=== PATIENT | male | born 1955 | race Caucasian/White ===

== ENCOUNTER 2017-08-07 19:31 | Emergency (ER) | payer MEDICAID, OTHER ==
[~2017-08-07] VITALS: Ht 167.6 cm; Wt 97.0 kg
[~2017-08-07 19:31] MED LIST: ASPI81TA3 PO; AZIT250T94 PO; CLOP75TA27 PO; METO50TA16 PO; NITR0.4T6 SL; SIMV40TA2 PO
[2017-08-07 19:34] VITALS: Ht 167.6 cm; Wt 97.0 kg
[2017-08-07] MEDS ORDERED: KETOROLAC 30 MG INJ IV STA (20:01)
[2017-08-07] MEDS ORDERED: SOD CHLORIDE 0.9% 1,000 ML IV STA (20:01)
[2017-08-07] MEDS ORDERED: ONDANSETRON 4 MG INJ IV STA (20:01)
[2017-08-07 20:24] LABS: BASOPHILS % 0.5 % (0.0-2.0); EOSINOPHILS # 0.3 10^3/ul (0.0-0.5); EOSINOPHILS % 3.3 % (0.0-7.0); HEMATOCRIT 46.5 % (42.0-52.0); HEMOGLOBIN 14.8 g/dl (14.0-18.0); LYMPHOCYTES # 2.9 10^3/ul (0.8-2.9); LYMPHOCYTES % 32.7 % (15.0-51.0); MEAN CORPUSCULAR HGB CONC 31.8 g/dl (32.0-37.0); MEAN CORPUSCULAR VOLUME 81.6 fl (82.0-101.0); MEAN PLATELET VOLUME 10.3 fl (7.4-10.4); MONOCYTE # 0.8 10^3/ul (0.3-0.9); NEUTROPHIL # 4.8 10^3/ul (1.6-7.5); NEUTROPHILS % 53.9 % (39.0-77.0); PLATELET COUNT 139 10^3/UL (140-415); POSITIVE DIFF @See below; RED CELL DISTRIBUTION WIDTH 13.6 % (11.5-14.5); WHITE BLOOD COUNT 8.8 10^3/ul (4.8-10.8)
[2017-08-07 20:57] LABS: ALBUMIN 4.4 g/dl (3.3-4.9); ALBUMIN/GLOBULIN RATIO 1.41; BILIRUBIN,INDIRECT 0.1 mg/dl (0-1.1); BILIRUBIN,TOTAL 0.1 mg/dl (0.2-1.3); CALCIUM 9.6 mg/dl (8.4-10.2); CREATININE 1.06 mg/dl (0.61-1.24); POTASSIUM 4.7 mmol/L (3.5-5.1); TOTAL PROTEIN 7.5 g/dl (6.1-8.1)
--- NOTE | 2017-08-07 21:22 | RADRPT ---
PROCEDURE: CT Abdomen and Pelvis without contrast. CLINICAL INDICATION: Right lower quadrant pain, right flank pain, back pain, mid abdominal pain, his tory of kidney stone TECHNIQUE: CT scan of the abdomen and pelvis without contrast was performed on a multidetector hig h-resolution CT scanner. The patient was scanned without intravenous contrast. Coronal and sagittal reformatted images were obtained from the axial source images. Images were reviewed on a high-resol [employer] PACS workstation. The total exam CTDI equals 19.83 mGy and the total exam DLP equals 1172.25 m Gy-cm. One or more the following dose reduction techniques were utilized: Automated exposure control, adjus tment of the mA and / or kV according to patient's size, or use of iterative reconstruction techniqu e. COMPARISON: 08/25/2007 FINDINGS: Minimal linear atelectasis/fibrosis at lung bases. No pneumoperitoneum is seen. Coronary artery calc ification. The gallbladder is contracted. This is nonspecific and could be due to nonfasting state. Food material/debris and air in the stomach. No abnormality seen in the liver, pancreas. No biliary dilatation is seen. No abnormality is seen in the spleen. There is minimal right hydronephrosis. The re are 3 rounded fluid density structures arising in the left kidney the largest 5.1 cm likely cysts . There is an approximate 4 mm calculus in the right ureter just below the level of the iliac crest. There is minimal periureteral soft tissue stranding. Phleboliths in the pelvis. No ascites is seen. Calcification in thoracoabdominal aorta, splenic, bilateral renal and bilateral iliac and femoral a rteries. There is mild prominence of the prostate with impression on the posterior inferior bladder. No definite abnormality of the colon is seen. There is an unremarkable appendix. No dilated small bowel loops are seen. No enlarged lymph nodes are seen in the abdomen or pelvis. There is a small to moderate left inguinal hernia containing fat only. Degenerative changes in thoracolumbar spine, sac roiliac joints and mild degenerative changes at hips. Small scattered likely bone islands. IMPRESSION: 4 mm calculus in upper to mid right ureter with minimal right hydronephrosis. Atherosclerosis. Small to moderate left inguinal hernia containing fat only. Please see above. RPTAT: HJES .Alfred Durand MD, MD Date Time Electronically viewed and signed by .Alfred Durand MD, MD on 08/07/2017 21:21 .S/
[2017-08-07 22:13] LABS: ADD UMIC YES; UR ASCORBIC ACID 40 mg/dL (NEGATIVE); UR BILIRUBIN (Dip) NEGATIVE (NEGATIVE); UR BLOOD (Dip) 2+ mg/dL (NEGATIVE); UR CLARITY CLEAR (CLEAR); UR COLOR YELLOW (YELLOW); UR GLUCOSE (Dip) NEGATIVE (NEGATIVE); UR KETONES (Dip) NEGATIVE (NEGATIVE); UR LEUKOCYTE ESTERASE (Dip) NEGATIVE Leu/ul (NEGATIVE); UR NITRITE (Dip) NEGATIVE (NEGATIVE); UR RBC 63 /HPF (0-5); UR SPECIFIC GRAVITY (Dip) 1.015 (1.003-1.030); UR TOTAL PROTEIN (Dip) NEGATIVE (NEGATIVE); UR UROBILINOGEN (Dip) NEGATIVE (NEGATIVE)
[2017-08-07] MEDS ORDERED: TAMS-14 PO (22:26)
[2017-08-07] MEDS ORDERED: IBUP-1542 PO (22:26)
[2017-08-07] MEDS ORDERED: HYDR-906 PO (22:26)
[2017-08-07] MEDS ORDERED: ONDA4TAB14 PO (22:27)
--- NOTE | 2017-08-07 22:34 | ERD ---
ER Documentation Chief Complaint Date/Time DATE: 08/07/17 TIME: 22:33 Chief Complaint R flank pain for 3 days hx kidney stones HPI Patient is a 62-year-old male with a past medical history of hypertension and nephrolithiasis who presents to the emergency department for intermittent right flank pain 3 days. Patient states the pain comes and goes in waves. Patient reports difficulty with sitting still secondary to pain. Patient reports taking ibuprofen with no alleviation of symptoms. Patient denies any dysuria, frequency, urgency or hematuria. Patient denies any recent falls or trauma. Patient denies any fevers, chills. Patient admits to nausea however he denies any vomiting. Patient denies any chest pain, shortness breath, abdominal pain or diarrhea. Patient denies any headache, blurry vision or LOC. ROS All systems reviewed and are negative except as per history of present illness. Medications Home Meds Active Scripts Ondansetron (Ondansetron Odt) 4 Mg Tab.rapdis, 4 MG PO Q6H Y for NAUSEA AND/OR VOMITING, #10 TAB Prov:BRIANNA GILLIS PA-C 08/07/17 Tamsulosin Hcl* (Flomax*) 0.4 Mg Cap.er.24h, 0.4 MG PO QPM, #30 CAP Prov:BRIANNA GILLIS PA-C 08/07/17 Hydrocodone/Acetaminophen (Alvin 5-325 Tablet) 1 Each Tablet, 1 TAB PO Q6H Y for PAIN, #7 TAB Prov:BRIANNA GILLIS PA-C 08/07/17 Ibuprofen* (Motrin*) 600 Mg Tab, 600 MG PO Q6, #30 TAB Prov:BRIANNA GILLIS PA-C 08/07/17 Azithromycin* (Zithromax*) 250 Mg Tab, 250 MG PO DAILY for 5 Days, TAB Prov:MAYO HALE 11/07/15 Nitroglycerin* (Nitroglycerin* SL) 0.4 Mg Tab.subl, 0.4 MG SL Q5MIN Y for CHEST PAIN, #1 BOTTLE Prov:MAYO HALE 11/07/15 Reported Medications Simvastatin* (Zocor*) 40 Mg Tablet, 40 MG PO QHS, #30 TAB 11/06/15 Aspirin* (Aspirin* Chew) 81 Mg Tab.chew, 81 MG PO DAILY, TAB.CHEW 11/06/15 Metoprolol Succinate* (Toprol XL*) 50 Mg Tab.er.24h, 50 MG PO DAILY, #30 TAB 11/06/15 Clopidogrel Bisulfate (Clopidogrel) 75 Mg Tablet, 75 MG PO DAILY, #30 TAB 11/06/15 Allergies Allergies: Coded Allergies: No Known Allergy (Unverified , 11/06/15) PMhx/Soc History of Surgery: Yes (STENT PLACEMENT 10 YEARS AGO) Anesthesia Reaction: No Hx Neurological Disorder: No Hx Respiratory Disorders: No Hx Cardiac Disorders: Yes (HTN, HYPERLIPIDEMIA, STENT PLACEMENT X 10 YEARS AGO) Hx Psychiatric Problems: No Hx Miscellaneous Medical Probl: No Hx Alcohol Use: Yes (OCCASIONAL, SOCIAL) Hx Substance Use: No Hx Tobacco Use: Yes (I PACK PER DAY X 14 YEARS) Smoking Status: Current every day smoker Physical Exam Vitals Vital Signs Date Time Temp Pulse Resp B/P Pulse Ox O2 Delivery O2 Flow Rate FiO2 08/07/17 19:34 97.7 83 20 168/83 98 Physical Exam GENERAL: Well-developed, well-nourished male. Appears in no acute distress. HEAD: Normocephalic, atraumatic. EYES: Pupils are equally reactive bilaterally. EOMs grossly intact. No conjunctival erythema. ENT: Moist mucous membranes. No uvula deviation. No kissing tonsils. NECK: Supple. No meningismus. Normal range of motion of the neck. LUNG: Clear to auscultation bilaterally. No rhonchi, wheezing, rales or coarse breath sounds. HEART: Regular rate and rhythm. No murmurs, rubs or gallops. ABDOMEN: Soft, nontender, and nondistended. Positive bowel sounds in all four quadrants. No rebound tenderness, no guarding. (-) McBurney's point tenderness. Right sided CVA tenderness. BACK: No midline tenderness. EXTREMITIES: Equal pulses bilaterally. No peripheral clubbing, cyanosis or edema. No unilateral leg swelling. NEUROLOGIC: Alert and oriented. Moving all four extremities without any difficulty. Normal speech. Steady gait. SKIN: Normal color. Warm and dry. No rashes or lesions. Result Diagram: 08/07/17201208/07/172012 Results 24 hrs Laboratory Tests Test 08/07/17 20:13 08/07/17 21:50 White Blood Count 8.810^3/ul Red Blood Count 5.7010^6/ul Hemoglobin 14.8g/dl Hematocrit 46.5% Mean Corpuscular Volume 81.6fl Mean Corpuscular Hemoglobin 26.0pg Mean Corpuscular Hemoglobin Concent 31.8g/dl Red Cell Distribution Width 13.6% Platelet Count 34387^3/UL Mean Platelet Volume 10.3fl Neutrophils % 53.9% Lymphocytes % 32.7% Monocytes % 9.0% Eosinophils % 3.3% Basophils % 0.5% Nucleated Red Blood Cells % 0.0/100WBC Neutrophils # 4.810^3/ul Lymphocytes # 2.910^3/ul Monocytes # 0.810^3/ul Eosinophils # 0.310^3/ul Basophils # 0.010^3/ul Nucleated Red Blood Cells # 0.010^3/ul Sodium Level 142mmol/L Potassium Level 4.7mmol/L Chloride Level 103mmol/L Carbon Dioxide Level 31mmol/L Anion Gap 13 Blood Urea Nitrogen 16mg/dl Creatinine 1.06mg/dl Glucose Level 121mg/dl Calcium Level 9.6mg/dl Total Bilirubin 0.1mg/dl Direct Bilirubin 0.00mg/dl Indirect Bilirubin 0.1mg/dl Aspartate Amino Transf (AST/SGOT) 42IU/L Alanine Aminotransferase (ALT/SGPT) 93IU/L Alkaline Phosphatase 85IU/L Total Protein 7.5g/dl Albumin 4.4g/dl Globulin 3.10g/dl Albumin/Globulin Ratio 1.41 Lipase 98U/L Urine Color YELLOW Urine Clarity CLEAR Urine pH 5.0 Urine Specific Benedict 1.015 Urine Ketones NEGATIVEmg/dL Urine Nitrite NEGATIVEmg/dL Urine Bilirubin NEGATIVEmg/dL Urine Urobilinogen NEGATIVEmg/dL Urine Leukocyte Esterase NEGATIVELeu/ul Urine Microscopic RBC 63/HPF Urine Microscopic WBC 3/HPF Urine Hemoglobin 2+mg/dL Urine Glucose NEGATIVEmg/dL Urine Total Protein NEGATIVEmg/dl Current Medications Medications (Trade) Dose Ordered Sig/Gerber Route PRN Reason Start Time Stop Time Status Last Admin Dose Admin Sodium Chloride (NS) 1,000 ml @ 1,000 mls/hr Q1H STAT IV 08/07/17 20:01 08/07/17 21:00 DC 08/07/17 20:06 Ondansetron HCl (Zofran Inj) 4 mg ONCE STAT IV 08/07/17 20:01 08/07/17 20:02 DC 08/07/17 20:07 Ketorolac Tromethamine (Toradol) 30 mg ONCE STAT IV 08/07/17 20:01 08/07/17 20:02 DC 08/07/17 20:07 Procedures/MDM ED COURSE: The patient was stable throughout ED course. I kept the patient and/or family informed of laboratory and diagnostic imaging results throughout the ED course. DIAGNOSTIC IMAGING: Read by radiologist. Patient: JOANN BIRMINGHAM : 1955 Age: 62 Sex: M MR #: [id number] DOS: 08/07/172000 Ordering MD: BRIANNA GILLIS PA-C Location: [facility] Room/Bed: PROCEDURE: CT Abdomen and Pelvis without contrast. CLINICAL INDICATION: Right lower quadrant pain, right flank pain, back pain, mid abdominal pain, history of kidney stone TECHNIQUE: CT scan of the abdomen and pelvis without contrast was performed on a multidetector high-resolution CT scanner. The patient was scanned without intravenous contrast. Coronal and sagittal reformatted images were obtained from the axial source images. Images were reviewed on a high-resolution PACS workstation. The total exam CTDI equals 19.83 mGy and the total exam DLP equals 1172.25 mGy-cm. One or more the following dose reduction techniques were utilized: Automated exposure control, adjustment of the mA and / or kV according to patient's size, or use of iterative reconstruction technique. COMPARISON: 08/25/2007 FINDINGS: Minimal linear atelectasis/fibrosis at lung bases. No pneumoperitoneum is seen. Coronary artery calcification. The gallbladder is contracted. This is nonspecific and could be due to nonfasting state. Food material/debris and air in the stomach. No abnormality seen in the liver, pancreas. No biliary dilatation is seen. No abnormality is seen in the spleen. There is minimal right hydronephrosis. There are 3 rounded fluid density structures arising in the left kidney the largest 5.1 cm likely cysts. There is an approximate 4 mm calculus in the right ureter just below the level of the iliac crest. There is minimal periureteral soft tissue stranding. Phleboliths in the pelvis. No ascites is seen. Calcification in thoracoabdominal aorta, splenic, bilateral renal and bilateral iliac and femoral arteries. There is mild prominence of the prostate with impression on the posterior inferior bladder. No definite abnormality of the colon is seen. There is an unremarkable appendix. No dilated small bowel loops are seen. No enlarged lymph nodes are seen in the abdomen or pelvis. There is a small to moderate left inguinal hernia containing fat only. Degenerative changes in thoracolumbar spine, sacroiliac joints and mild degenerative changes at hips. Small scattered likely bone islands. IMPRESSION: 4 mm calculus in upper to mid right ureter with minimal right hydronephrosis. Atherosclerosis. Small to moderate left inguinal hernia containing fat only. Please see above. RPTAT: HJES .Alfred Durand MD, MD Date Time Electronically viewed and signed by .Alfred Durand MD, on 08/07/2017 21:21 .S/ CC: BRIANNA GILLIS PA-C PROCEDURES: None. MEDICATIONS GIVEN: IV fluids, Toradol, Zofran Patient tolerated medication well with no adverse reactions. Patient reported improvement in pain. MEDICAL DECISION MAKING: This is a 62-year-old male who presents with right-sided flank pain 3 days. Vital signs were reviewed. Patient is afebrile. Patient is not hypoxic. Abdominal exam revealed + right CVA tenderness. UA showed + blood, no nitrites, no leukocyte esterase. Abd CT showed 4 mm calculus in upper to mid right ureter with minimal right hydronephrosis. Atherosclerosis. Small to moderate left inguinal hernia containing fat only. Please see above. Given these findings, the patient's presentation is most consistent with nephrolithiasis. I have a much lower clinical concern for pyelonephritis, UTI, diverticulitis, AAA, bowel perforation, bowel obstruction, mesenteric ischemia, acute kidney injury. PRESCRIPTIONS: Alvin, ibuprofen, Zofran, Flomax DISCHARGE: Patient is stable for outpatient management. Patient was given a copy of all imaging and blood work obtained today.Patient advised to drink plenty of foods. I have instructed the patient to follow-up with his/her primary care physician in 2-3 days.She was given urology referral information. Patient encouraged to follow-up with the urologist in the next 1-2 days. I have instructed the patient to promptly return to the ER at any time for any new or worsening symptoms including increased pain, fever, discharge, nausea, vomiting or gross hematuria. The patient and/or family expressed understanding of and agreement with this plan. All questions were answered. Home care instructions were provided. Patient's blood pressure was elevated (>120/80) but appears stable without evidence of hypertensive emergency, hypertensive urgency or end-organ failure. I had discussion with the patient about the risks of hypertension. I have advised the patient to follow up with his/her primary care physician for outpatient monitoring and treatment for hypertension in 2-3 days. I have instructed the patient to return to the ER for any new or worsening symptoms including chest pain, shortness of breath, headache, blurred vision, confusion, nausea, vomiting or LOC. Disclaimer: Inadvertent spelling and grammatical errors are likely due to EHR/ dictation software use and do not reflect on the overall quality of patient care. Also, please note that the electronic time recorded on this note does not necessarily reflect the actual time of the patient encounter. Departure Diagnosis: Primary Impression: Nephrolithiasis Condition: Stable Patient Instructions: Identifying Kidney Stones Referrals: IFEOMA RIOS,LATRELL DAVILA,DEMETRIA HUERTA,SONNY CUEVAS,PETRONA MELTON,JAZIEL MUNOZ MD Additional Instructions: Call your primary care doctor TOMORROW for an appointment during the next 1-2 days.See the doctor sooner or return here if your condition worsens before your appointment time. Follow up with the urologist for further management of her kidney stone. See referral information. BRIANNA GILLIS PA-C Aug 07, 2017 22:34
== END 2017-08-07 22:45 | disposition home or self-care (01) ==
LOC: FTE 19:31
DX: N20.0 Calculus of kidney (principal); I10 Essential (primary) hypertension; F17.210 Nicotine dependence, cigarettes, uncomplicated; Z79.01 Long term (current) use of anticoagulants; Z79.82 Long term (current) use of aspirin; Z98.61 Coronary angioplasty status
CPT/HCPCS: 36415; 74176; 80053; 81001; 83690; 85025; 96374; 96375; J1885; J2405; J7030; Z7502

== ENCOUNTER 2017-12-11 23:19 | Observation (INO) | END 2017-12-13 13:34 | disposition home or self-care (01) ==

== ENCOUNTER 2018-01-13 01:51 | Observation (INO) | END 2018-01-14 17:34 | disposition home or self-care (01) ==